=== PATIENT | female | born 1960 | race Hispanic/Latino ===

== ENCOUNTER → 2018-10-09 12:47 | Outpatient (CLI) | payer OTHER, SELFPAY ==
--- NOTE | 2018-10-09 | DI.RAD.S_ITS ---
PROCEDURE: XR KNEE LT 1TO2V INDICATIONS: BACK PAIN/LEFT KNEE PAIN TECHNIQUE: 2 views of the knee were acquired. COMPARISON: [facility], CR, XR KNEE 3VW LT, 07/17/2016, 16:43. FINDINGS: Bones: No fractures or dislocations. No suspicious bony lesions. 2 mm calcific focus projecting the superolateral soft tissues. Mild medial joint space narrowing, with spurring. Soft tissues: No joint effusion. No suspicious soft tissue calcifications. IMPRESSION: Mild left knee joint degeneration. No interval change. Dictated by: Omer No M.D. on 10/09/2018 at 13:35 Approved by: Omer No M.D. on 10/09/2018 at 13:37
--- NOTE | 2018-10-09 | DI.RAD.S_ITS ---
PROCEDURE: XR LUMBAR SPINE 2-3V INDICATIONS: BACK PAIN/LEFT KNEE PAIN TECHNIQUE: 5 views of the lumbar spine were acquired. COMPARISON: None. FINDINGS: Bones: No fracture or focal osseous destruction. Diffuse endplate spurring and sclerosis. Diffuse facet arthropathy. Moderate L4-L5 and L5-S1 disc space narrowing. Moderate L1-L2 disc space narrowing. Mild narrowing of the remaining lumbar disc spaces. Soft tissues: Overlying bowel gas pattern is normal. No suspicious soft tissue calcifications. IMPRESSION: Multilevel mild to moderate lumbar disc degeneration and facet arthropathy as above. Dictated by: Omer No M.D. on 10/09/2018 at 13:33 Approved by: Omer No M.D. on 10/09/2018 at 13:35
== END ==
DX: M54.5 Low back pain (principal); M51.36 Other intervertebral disc degeneration, lumbar region; M47.816 Spondylosis without myelopathy or radiculopathy, lumbar region; M48.061 Spinal stenosis, lumbar region without neurogenic claudication; M48.07 Spinal stenosis, lumbosacral region; M25.562 Pain in left knee; M17.12 Unilateral primary osteoarthritis, left knee
CPT/HCPCS: 72100; 73560